=== PATIENT | female | born 2000 | race Two or more races ===

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

== ENCOUNTER 2020-06-24 17:20 | Emergency (ER) | payer OTHER ==
[~2020-06-24] VITALS: Ht 152.4 cm; Wt 54.5 kg
[~2020-06-24 17:20] MED LIST changes: +CEPH-264 PO; +ONDA4TAB12 PO
--- NOTE | 2020-06-24 19:02 | ED.ADGEN ---
Past Medical History Past Medical History: No Pertinent History Past Surgical History: No Surgical History, Smoking Status: Never Smoker Alcohol Use: None Drug Use: None General Adult EDM: Chief Complaint: UPPER EXTREMITY PAIN HPI: HPI: Patient is a 20 year old female who presents to the emergency department with complaints of bilateral wrist and forearm pain with intermittent tingling of her fingers. Patient states that the symptoms began after she delivered her child back in April 2020. She reports that the wrist pain has become more constant over the last 2 weeks. She states that she feels like her fingers are swollen. She denies any redness, warmth, or injury to either of her upper extremities. She states that the pain sometimes wakes her up from sleep. 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 She denies any weakness or decreased sensation of her upper extremities. The patient states that the index and middle fingers are the 2 fingers that typically are most painful. She states that the pain radiates up to her elbows. She denies any discomfort at the time of my exam. Review of Systems: Review of Systems: Complete ROS is negative unless otherwise noted in HPI. Allergies: Allergies: Allergies Coded Allergies Type Severity Reaction Last Updated Verified No Known Drug Allergies 03/28/18 No Physical Exam: PE: See Above Constitutional: Well developed, well nourished, no acute distress, non-toxic appearance. [] HENT: Normocephalic, atraumatic, bilateral external ears normal, nose normal. [] Eyes: PERRLA, EOMI, conjunctiva normal, no discharge. [] Neck: Normal range of motion, no stridor. [] Cardiovascular:Heart rate regular rhythm Lungs & Thorax: Respirations even and unlabored, no retractions, no respiratory distress Skin: Warm, dry, no erythema, no rash. [] Extremities: Bilateral wrists/hands: No obvious deformity, no bony tenderness, no crepitus, no erythema, no cyanosis, ROM intact, no edema, increased discomfort with Phalen's testing Neurologic: Alert and oriented X 3, motor intact, sensation intact, no focal deficits noted. [] Psychologic: Affect normal, judgement normal, mood normal. [] Current Patient Data: Vital Signs: Vital Signs Date Time Temp Pulse Resp B/P (MAP) Pulse Ox O2 Delivery O2 Flow Rate FiO2 1/22/21 17:34 98.0 82 16 112/67 (82) 100 Room Air 98.0 EKG: EKG: [] Heart Score: Risk Factors: Risk Factors: DM, Current or recent (<one month) smoker, HTN, HLP, family history of CAD, obesity. Risk Scores: Score 0 - 3: 2.5% MACE over next 6 weeks - Discharge Home Score 4 - 6: 20.3% MACE over next 6 weeks - Admit for Clinical Observation Score 7 - 10: 72.7% MACE over next 6 weeks - Early Invasive Strategies Radiology/Procedures: Radiology/Procedures: [] Course & Med Decision Making: Course & Med Decision Making Pertinent Labs and Imaging studies reviewed. (See chart for details) 20-year-old female who presents emergency department with complaints of intermittent bilateral hand and wrist pain for several months that had increased over the last 3 weeks. Physical exam reveals increased discomfort with Phalen's testing. After interviewing the patient her most consistent with carpal tunnel syndrome. I advised the patient to purchase some nighttime carpal tunnel splints and some wrist supports for relief of her discomfort, encourage her to take ibuprofen to help reduce inflammation and pain. Follow-up with her primary care doctor if symptoms persist, return to ER if symptoms worsen. Patient verbalized an understanding of home care, medications, follow-up, and return to ED instructions and was in agreement with the plan of care. [] Dragon Disclaimer: Dragon Disclaimer: This electronic medical record was generated, in whole or in part, using a voice recognition dictation system. Departure Departure Impression: Primary Impression: Carpal tunnel syndrome on both sides Disposition: 01 DC HOME SELF CARE/HOMELESS Condition: STABLE Referrals: NO PCP (PCP) Patient Instructions: Carpal Tunnel Syndrome, [id number] Additional Instructions: Recommend the wrist splints and sports as discussed in the ER. Take Tylenol or ibuprofen as needed for pain. Follow-up with your primary care doctor next week, return to the ER if symptoms worsen. LEONELA STARK APRN Jun 24, 2020 19:02
[2020-06-24 19:10] VITALS: BP 120/66
== END 2020-06-24 19:26 | disposition home or self-care (01) ==
LOC: ER 17:20
DX: G56.03 Carpal tunnel syndrome, bilateral upper limbs (principal); M25.531 Pain in right wrist; M25.532 Pain in left wrist; Z98.890 Other specified postprocedural states
CPT/HCPCS: 99282

== ENCOUNTER 2021-05-01 13:35 | Emergency (ER) | payer OTHER ==
[~2021-05-01] VITALS: Ht 157.5 cm; Wt 55.0 kg
[~2021-05-01 13:35] MED LIST changes: +CYCL10TA19 PO; -CYCL10TA2 PO
[2021-05-01 15:53] LABS: BILIRUBIN,URINE NEGATIVE (NEG); COLOR,URINE YELLOW; NITRITE,URINE NEGATIVE (NEG); PROTEIN,URINE NEGATIVE (NEG-TRACE); UROBILINOGEN,URINE 0.2 mg/dL (0.2 mg/dL)
[2021-05-01 16:04] LABS: CLARITY,URINE HAZY
[2021-05-01 16:05] LABS: BACTERIA,URINE 0 /HPF (0-FEW); RBC,URINE TNTC /HPF (0-2)
--- NOTE | 2021-05-01 16:43 | RAD ---
EXAM: ULTRASOUND PELVIS INDICATION: Reason: pelvic pain / Spl. Instructions: / History: . Last menstrual period was 021. COMPARISON: CT abdomen pelvis from 05/21/2018 TECHNIQUE: Transabdominal sonography was performed. FINDINGS: The anteverted uterus measures 9.8 x 5.5 x 3.5 cm. The endometrium measures 6 mm. There is no focal myometrial abnormality The right ovary measures 3.7 x 2.5 x 2.4 cm. Right ovary is normal in size and morphology. There is normal low resistance vascularity. The left ovary measures 3.8 x 2.6 x 3.0 cm. Left ovary is normal in size and morphology. There is no rmal low resistance vascularity. There is no free fluid. IMPRESSION: Normal pelvic ultrasound. Electronically signed by: Manuel Cr DO (05/01/2021 4:40 PM) [id number]
[2021-05-01] MEDS ORDERED: traMADol 50 MG TABLET PO ONE (17:15)
[2021-05-01 17:39] VITALS: BP 109/78
[2021-05-01] MEDS ORDERED: TRAM50TA PO (17:55)
--- NOTE | 2021-05-01 17:57 | PHYS DOC ---
Past Medical History Past Medical History: No Pertinent History (ANGELINA GARZA [employer]) Past Surgical History: No Surgical History, (ANGELINA GARZA [employer]) Smoking Status: Never Smoker Alcohol Use: None Drug Use: None (ANGELINA GARZA APRN) General Adult EDM: Chief Complaint: PELVIC PAIN HPI: HPI: Patient is a 20 year old female who presents to the ED today complaining of pelvic pain, symptoms of been going on for 1 year. Patient states symptoms occur every time she has her menstrual cycle. Denies bleeding heavy. Denies any nausea vomiting. Describes the pain as sharp rated a 10 out of 10. Denies any relief from ibuprofen. She states she has been seen in the ED as well as the [facility] for this pain and was told she has a spinal deformity. Denies any chance she is . (ANGELINA GARZA [employer]) Review of Systems: Review of Systems: Constitutional: Denies fever or chills. [] GI: Reports pelvic pain, denies nausea, vomiting, bloody stools or diarrhea. [] : Denies dysuria. [] Musculoskeletal: Denies back pain or joint pain. [] Integument: Denies rash. [] Neurologic: Denies headache, focal weakness or sensory changes. [] Psychiatric: Denies depression or anxiety. [] (ANGELINA GARZA [employer]) Heart Score: C/O Chest Pain: N/A Risk Factors: Risk Factors: DM, Current or recent (<one month) smoker, HTN, HLP, family history of CAD, obesity. Risk Scores: Score 0 - 3: 2.5% MACE over next 6 weeks - Discharge Home Score 4 - 6: 20.3% MACE over next 6 weeks - Admit for Clinical Observation Score 7 - 10: 72.7% MACE over next 6 weeks - Early Invasive Strategies (ANGELINA GARZA [employer]) Current Medications: Current Medications Medications (Trade) Dose Ordered Sig/Dameon Start Time Stop Time Status Last Admin Dose Admin Tramadol HCl (Ultram) 50 mg 1X ONCE 05/01/21 17:15 05/01/21 17:16 DC 05/01/21 17:37 50 MG (ANGELINA GARZA [employer]) Allergies: Allergies: Allergies Coded Allergies Type Severity Reaction Last Updated Verified No Known Drug Allergies 03/28/18 No (ANGELINA GARZA APRN) Physical Exam: PE: Constitutional: Well developed, well nourished, no acute distress, non-toxic appearance. [] Abdomen: Bowel sounds normal, soft, no tenderness, no masses, no pulsatile masses. [] Pelvic exam External pelvic appears normal, cervix is visualized, no CMT, no adnexal tenderness, small amount of bright red blood noted in the vaginal vault Skin: Warm, dry, no erythema, no rash. [] Back: No tenderness, no CVA tenderness. [] Extremities: No tenderness, no cyanosis, no clubbing, ROM intact, no edema. [] Neurologic: Alert and oriented X 3, normal motor function, normal sensory function, no focal deficits noted. [] Psychologic: Affect normal, judgement normal, mood normal. [] (ANGELINA GARZA APRN) Current Patient Data: Labs: Laboratory Tests Test 05/01/21 15:25 05/01/21 15:28 Urine Collection Type Unknown Urine Color Yellow Urine Clarity Hazy Urine pH 6.0 (<5.0-8.0) Urine Specific Elizabeth 1.025 (1.000-1.030) Urine Protein Negative mg/dL (NEG-TRACE) Urine Glucose (UA) Negative mg/dL (NEG) Urine Ketones (Stick) Negative mg/dL (NEG) Urine Blood Large (NEG) Urine Nitrite Negative (NEG) Urine Bilirubin Negative (NEG) Urine Urobilinogen Dipstick 0.2 mg/dL (0.2 mg/dL) Urine Leukocyte Esterase Trace (NEG) Urine RBC Tntc /HPF (0-2) Urine WBC 1-4 /HPF (0-4) Urine Squamous Epithelial Cells Mod /LPF Urine Bacteria 0 /HPF (0-FEW) Urine Mucus Marked /LPF POC Urine HCG, Qualitative Hcg negative (Negative) Microbiology 05/01/21 Wet Prep - Final, Complete Vital Signs: Vital Signs Date Time Temp Pulse Resp B/P (MAP) Pulse Ox O2 Delivery O2 Flow Rate FiO2 05/01/21 17:39 78 19 109/78 (88) 100 Room Air 05/01/21 15:21 98.4 98.4 (ANGELINA GARZA APRN) EKG: EKG: [] (ANGELINA GARZA APRN) Radiology/Procedures: Radiology/Procedures: []ROCEDURE: PELVIS COMPLETE EXAM: ULTRASOUND PELVIS INDICATION: Reason: pelvic pain / Spl. Instructions: / History: . Last menstrual period was 04/30/2021. COMPARISON: CT abdomen pelvis from 05/21/2018 TECHNIQUE: Transabdominal sonography was performed. FINDINGS: The anteverted uterus measures 9.8 x 5.5 x 3.5 cm. The endometrium measures 6 mm. There is no focal myometrial abnormality The right ovary measures 3.7 x 2.5 x 2.4 cm. Right ovary is normal in size and morphology. There is normal low resistance vascularity. The left ovary measures 3.8 x 2.6 x 3.0 cm. Left ovary is normal in size and morphology. There is normal low resistance vascularity. There is no free fluid. IMPRESSION: Normal pelvic ultrasound. Electronically signed by: Abel Cr DO (05/01/2021 4:40 PM) [id number] DICTATED and SIGNED BY: ABEL CR DO DATE: 05/01/21 [id number] (ANGELINA GARZA APRN) Course & Med Decision Making: Course & Med Decision Making Pertinent Labs and Imaging studies reviewed. (See chart for details) This is a 20-year-old female patient presented to the ED today complaining of pelvic pain that occurs every time she has her menstrual cycle. This has been going on for 1 year. Pelvic ultrasound is negative. Wet prep is negative, negative urine hCG, UA negative for infection, discharge to home. Encourage follow-up with [facility]. (ANGELINA GARZA APRN) Course & Med Decision Making Patients Care and treatment plan provided by ER Nurse Practitioner. I was available for consult. Patient's chart reviewed. (JOSH RIGGS DO) Vianeyon Disclaimer: Andres Disclaimer: This electronic medical record was generated, in whole or in part, using a voice recognition dictation system. (ANGELINA GARZA APRN) Departure Departure Impression: Primary Impression: Dysmenorrhea Disposition: HOME / SELF CARE / HOMELESS Condition: STABLE Referrals: BELEN CALABRESE (PCP) DOM LAZARO MD follow up in one week Patient Instructions: Dysmenorrhea, [id number] Additional Instructions: You were seen in the emergency room for pelvic pain. We encourage you to follow-up with an [facility]. Your pelvic ultrasound is negative for any acute findings. Take the prescribed medications as needed for pain. Scripts Tramadol Hcl (TRAMADOL HCL) 50 Mg Tablet 50 MG PO Q6HRS PRN for PAIN, #12 TAB Prov: ANGELINA GARZA APRN 05/01/21 ANGELINA GARZA APRN May 01, 2021 17:56 JOSH RIGGS DO May 03, 2021 03:31
[2021-05-02 19:09] LABS: GC PROBE Negative (Negative)
== END 2021-05-01 18:30 | disposition home or self-care (01) ==
LOC: ER 13:35
DX: N94.6 Dysmenorrhea, unspecified (principal); R10.2 Pelvic and perineal pain
CPT/HCPCS: 76856; 81001; 81025; 87086; 87491; 87591; 99284; Q0111